=== PATIENT | female | born 1980 | race Caucasian/White ===

== ENCOUNTER → 2020-12-18 13:25 | Outpatient (BNVA) | payer MEDICAID, SELFPAY | PROVIDERS: Family Provider Family Medicine; PCP Family Medicine; Visit Provider Psychiatry & Neurology Psychiatry | DX: F43.12 Post-traumatic stress disorder, chronic (principal); F33.1 Major depressive disorder, recurrent, moderate; F41.1 Generalized anxiety disorder; F17.200 Nicotine dependence, unspecified, uncomplicated; F12.20 Cannabis dependence, uncomplicated; F15.20 Other stimulant dependence, uncomplicated | CPT/HCPCS: 99204 ==

== ENCOUNTER 2023-10-14 04:39 | Emergency (ER) | payer SELFPAY ==
[2023-10-14 04:41] VITALS: BP 149/96; PULSE 101; TEMP 36.6; O2SAT 100
--- NOTE | 2023-10-14 04:44 | W.ED.ALCOHOL ---
Documented by User: Saleem Madison DO 10/14/23 04:46 HPI - Alcohol General: Chief Complaint: Alcohol Stated Complaint: ETOH Time Seen by Provider: 10/14/23 04:44 History of Present Illness: EMS brought patient in he was found unresponsive after drinking alcohol. EMS was called by her significant other and her son who was also drinking with her. Patient is alert and talkative upon arrival. Patient says she drinks about 1/5 of tequila within 2 hours and passed out. Patient says she has no complaints at this time other than she wants to go home. Review of Systems General: Reports: 10 or more systems reviewed and unremarkable except in HPI and below PFSH ED PFSH: Medical History Psychiatric care Family History Denies family history of Colon cancer Ovarian cancer Diabetes Heart disease Hypercholesteremia Breast cancer Hypertension Uterine cancer Thyroid disease Stroke Physical Exam Const: COMMON NORMALS: no acute distress, average body habitus, no limitations, healthy appearing, alert and well nourished HENMT: COMMON NORMALS: normocephalic, atraumatic, hearing grossly normal bilaterally, external ears normal, Normal external nose present, moist oral mucous membranes and oropharynx normal HEAD & SCALP: normocephalic and atraumatic NOSE: Normal external nose present EXTERNAL EAR: Yes external ears normal Neck/C-Spine: COMMON NORMALS: no JVD Chest: COMMONS NORMALS: normal inspection of the chest and normal palpation of entire chest wall Resp: COMMON NORMALS: normal respiratory effort, No retractions, No use of accessory muscles and clear to auscultation bilaterally AUSCULTATION: clear to auscultation bilaterally Cardio: COMMON NORMALS: no JVD, regular rate, regular rhythm, S1 normal heart sound present, S2 normal heart sound present, No gallops present (Cardio), No clicks present (Cardio), No murmurs present (Cardio) and No rub (Cardio) RATE: regular rate RHYTHM: regular rhythm HEART SOUNDS: S1 normal heart sound present and S2 normal heart sound present GI: COMMON NORMALS: Normal to inspection, nondistended, normoactive bowel sounds present, Soft to palpation, non-tender, No hepatosplenomegaly present and no masses PALPATION: Yes Soft to palpation and Yes No hepatosplenomegaly present Neuro: SENSORIUM/ORIENTATION: Yes alert Course Vital Signs: Vital signs: Vital Signs Temperature 97.8 F 10/14/23 04:41 Pulse Rate 101 H 10/14/23 04:41 Respiratory Rate 16 10/14/23 05:56 Blood Pressure 149/96 10/14/23 04:41 Pulse Oximetry 97 10/14/23 05:56 Oxygen Delivery Me thod Room Air 10/14/23 05:56 MDM - Alcohol Differential Diagnosis Likely alcohol intoxication Medical Records I reviewed the patient's medical records. Lab Data I reviewed the patient's lab results. All radiology interpretation(s) finalized by discharge Discharge Plan Discharge Patient Disposition: Home Clinical Impression: Alcoholic intoxication Prescriptions: No Action azithromycin 250 mg tablet See Rx Instructions PO .COMPLEX Qty: 6 0RF Rx Instructions: take 500 mg today (day 1), then 250 mg for 4 days (days 2-5) PO Discharge Orders: Discharge ED (Routine); Ordered 10/14/23 Ordered By: Dmitry Gates Referrals: Ale Muhammad DO [Primary Care Provider] - Discharge Diet: Advance as tolerated Discharge Activity: Increase activity as tolerated Patient Instructions: Opioid Safety, Pain Management Activity Restrictions/Additional Instructions: Do not drink alcohol to excess. Continue to rehydrate yourself today with water and sports drinks. If it anytime you develop any new or worsening symptoms you are welcome to return to the emergency department at any time. Coding Level of Care Code ED Pharmacy Billing Adjudicator for Chg Fwd Documented by User: Dmitry Gates DO 10/14/23 08:57 HPI - Alcohol General: Chief Complaint: Alcohol Stated Complaint: ETOH Time Seen by Provider: 10/14/23 04:44 PFSH ED PFSH: Medical History Psychiatric care Family History Denies family history of Colon cancer Ovarian cancer Diabetes Heart disease Hypercholesteremia Breast cancer Hypertension Uterine cancer Thyroid disease Stroke Course Reevaluation(s): Reevaluation #1: I received signout from overnight emergency physician regarding this patient. The patient apparently had imbibed significant alcohol and had a syncopal episode and family called EMS. There was no history that suggested that she was suicidal homicidal etc. I interviewed the patient she responds readily to voice and states she wants to go home. She again denies to me that she has any thoughts of harming herself or others but admitted that she drank too much alcohol. She denies that she drinks alcohol every day. She lives with her 3 teenage children age 6 through 18 and has a nonlive-in boyfriend. She denies any complaints right now other than she still nauseated. She is aware of her circumstances, has intact decision making capacity which will reassess after antinausea medicine and allowing her to ambulate about the emergency department. If she has responsible family can provide reliable transportation to a safe environment we will evaluate for discharge. Time: 07:00 Reevaluation #2: The patient was reevaluated. She remains alert and answers questions appropriately and is aware of herself and surroundings.. No new or focal findings on clinical examination. She will be ambulated to ensure clinical stability but at this time she does not have any stigmata to suggest an ongoing emergency medical condition current plan given her current clinical picture will be to discharge with family. Time: 08:53 Vital Signs: Vital signs: Vital Signs Temperature 97.8 F 10/14/23 04:41 Pulse Rate 101 H 10/14/23 04:41 Respiratory Rate 16 10/14/23 05:56 Blood Pressure 149/96 10/14/23 04:41 Pulse Oximetry 97 10/14/23 05:56 Oxygen Delivery Me thod Room Air 10/14/23 05:56 MDM - Alcohol Medical Decision Making This patient was transported to the emergency department from her home after imbibing in a large amount of alcohol. This resulted in feeling weak and dizzy and she was transported to the emergency department at the behest of her family. He was evaluated by the overnight emergency physician and found to be clinically stable and she is expressing desires being discharged home. She was observed in the emergency department for a total of over 4 hours and remained alert, aware of surroundings and self and competent for decision-making. She did have mild nausea which was treated with antiemetics. The patient desires to be discharged to home to continue her recovery. At this point in time she has intact decision-making capacity has declined any additional intervention and is suitable to be discharged with return precautions. She is being discharged with family members. Discharge Plan Discharge Patient Disposition: Home Clinical Impression: Alcoholic intoxication Prescriptions: No Action azithromycin 250 mg tablet See Rx Instructions PO .COMPLEX Qty: 6 0RF Rx Instructions: take 500 mg today (day 1), then 250 mg for 4 days (days 2-5) PO Discharge Orders: Discharge ED (Routine); Ordered 10/14/23 Ordered By: Dmitry Gates Referrals: Ale Muhammad, [Primary Care Provider] - Discharge Diet: Advance as tolerated Discharge Activity: Increase activity as tolerated Patient Instructions: Opioid Safety, Pain Management Activity Restrictions/Additional Instructions: Do not drink alcohol to excess. Continue to rehydrate yourself today with water and sports drinks. If it anytime you develop any new or worsening symptoms you are welcome to return to the emergency department at any time. Coding Level of Care Code ED Pharmacy Billing Adjudicator for Miya Barreto
[2023-10-14 05:56] VITALS: RESP 16; O2SAT 97
[2023-10-14] MEDS: ondansetron 4 MG Tablet PO (07:50)
--- NOTE | 2023-10-14 08:15 | PC.NURSE ---
PATIENT DAUGHTER CALLED REQUESTING UPDATE. PATIENT DAUGHTER NOT IN THE CHART. VERBAL CONSENT FROM PATIENT TO GIVE DAUGHTER INFORMATION. DAUGHTER STATES IF PATIENT IS STILL HERE AT NOON, DAUGHTER WILL COME AND PICK PATIENT UP.
[2023-10-14] MEDS: acetaminophen 500 mg Tablet 1000 MG PO (08:54)
[2023-10-14 09:04] VITALS: BP 133/81; PULSE 83; O2SAT 96
== END 2023-10-14 09:05 | disposition home or self-care (01) ==
PROVIDERS: Emergency Provider Emergency Medicine; PCP Family Medicine
DX: F10.129 Alcohol abuse with intoxication, unspecified (principal)
CPT/HCPCS: 99283; Q0162

== ENCOUNTER 2024-02-22 05:41 | Emergency (ER) | payer MEDICAID, SELFPAY ==
[2024-02-22 05:45] VITALS: BP 142/94; PULSE 102; RESP 18; TEMP 36.1; O2SAT 99; BMI 27.4
--- NOTE | 2024-02-22 06:05 | XRR_ITS ---
PROCEDURE INFORMATION: Exam: XR Chest Exam date and time: 02/22/2024 6:21 AM Age: 43 years old Clinical indication: Dyspnea; Additional info: Dyspnea/cough TECHNIQUE: Imaging protocol: Radiologic exam of the chest. Views: 1 view. COMPARISON: No relevant prior studies available. FINDINGS: Lungs: Unremarkable. No consolidation. Pleural spaces: Unremarkable. No pleural effusion. No pneumothorax. Heart/Mediastinum: Unremarkable. No cardiomegaly. Bones/joints: Unremarkable. XR/XR chest 1V portable [id number] IMPRESSION: No acute findings.
--- NOTE | 2024-02-22 06:05 | W.ED.GENADLT ---
HPI - General Adult General: Chief complaint: General Medical Stated complaint: general sickness Time Seen by Provider: 02/22/24 05:43 Source: patient Mode of arrival: EMS History of Present Illness: 43-year-old female presents to the emergency room with multiple complaints. She complaining of a headache abdominal pain and difficulty emptying her bladder (she states this has been ongoing issue she is seen gynecology for it in the past). She complaining of low back pain she also complaining of some dysuria and headache. She said she has arthritis and previously tore a muscle in her quadriceps in her leg for which she takes diclofenac. She also related that she was having a flare of her lupus. When attempted to focus her chief complaint asked her specifically what was the thing bothering her the most that she called the ambulance she told me was she did not call the ambulance that her sons girlfriend called the ambulance because she had a headache and is having difficulty with her balance. She also related that she recently had an ultrasound because her bile duct is leaking into her stomach. Although review of her chart here there is no recent imaging done here. Onset (ago): day(s) Associated symptoms: Deny chest pain, dyspnea or rash Review of Systems Const: Denies: fever(s) or chills Card: Denies: chest pain Resp: Denies: dyspnea GI: Denies: abdominal pain : Denies: dysuria, urinary frequency or urinary urgency Musc: Denies: neck pain or back pain Skin/Breast: Denies: rash [facility] ED PFSH: Medical History (Updated 02/22/24 @ 08:31 by Lucho Hawthorne DO) Methamphetamine use disorder, moderate Cannabis use disorder, severe, dependence Major depressive disorder, recurrent, moderate Psychiatric care Family History Denies family history of Colon cancer Ovarian cancer Diabetes Heart disease Hypercholesteremia Breast cancer Hypertension Uterine cancer Thyroid disease Stroke Social History (Updated 02/22/24 @ 06:17 by Lucho Hawthorne DO) Substance/Drug Use: current Substance/Drug use type: Marijuana and Methamphetamine Physical Exam Const: GENERAL APPEARANCE: cooperative and comfortable ORIENTATION/CONSCIOUSNESS: Yes awake, Yes oriented to person, Yes oriented to place and Yes oriented to time HENMT: COMMON NORMALS: normocephalic, atraumatic and hearing grossly normal bilaterally HEAD & SCALP: normocephalic and atraumatic Resp: COMMON NORMALS: normal respiratory effort, No retractions, No use of accessory muscles and clear to auscultation bilaterally AUSCULTATION: clear to auscultation bilaterally Cardio: COMMON NORMALS: regular rate, regular rhythm and No murmurs present (Cardio) RATE: regular rate RHYTHM: regular rhythm GI: COMMON NORMALS: Soft to palpation and No hepatosplenomegaly present AUSCULTATION: Yes normoactive bowel sounds PALPATION: Yes Soft to palpation, No Tenderness to palpation present (GI), No Guarding due to palpation present (GI) and Yes No hepatosplenomegaly present Extremity: COMMON NORMALS: normal to inspection, capillary refill normal, no clubbing, cyanosis or edema, no calf tenderness and no pedal edema Neuro: SENSORIUM/ORIENTATION: Yes oriented to person, Yes oriented to place and Yes oriented to time Skin: COMMON NORMALS: no rashes or lesions noted GENERAL SKIN EXAM: no rashes or lesions noted Course Vital Signs: Vital signs: Vital Signs Temperature 97.0 F L 02/22/24 05:45 Pulse Rate 94 02/22/24 08:53 Respiratory Rate 16 02/22/24 06:37 Blood Pressure 129/89 02/22/24 08:53 Pulse Oximetry 98 02/22/24 08:53 Oxygen Delivery Me thod Room Air 02/22/24 05:45 [facility] - General Adult Medical Decision Making Multiple complaints. No significant findings no emergent condition at this time. Reviewed findings with the patient discharged home on diclofenac to use as needed follow-up with primary care. Medical Records I reviewed the patient's medical records. Lab Data I reviewed the patient's lab results. 02/22/24 06:09 02/22/24 06:09 Radiology Impressions Chest X-Ray 02/22/24 06:05 IMPRESSION: No acute findings. Head CT 02/22/24 06:12 IMPRESSION: No acute intracranial abnormality. Laboratory Results WBC 12.03 10^3/uL (3.29-11.43) H 02/22/24 06:09 RBC 4.40 10^6/uL (3.85-5.65) 02/22/24 06:09 Hgb 13.80 g/dL (11.27-16.99) 02/22/24 06:09 Hct 41.2 % (36-47) 02/22/24 06:09 MCV 93.6 fl (85-98) 02/22/24 06:09 MCH 31.4 pg (27-33) 02/22/24 06:09 MCHC 33.5 g/dL (30-55) 02/22/24 06:09 RDW 14.3 % (12.1-15.1) 02/22/24 06:09 Plt Count 244 10^3/cmm (157-399) 02/22/24 06:09 MPV 10.3 fL (7.4-10.4) 02/22/24 06:09 Neut % (Auto) 66.1 % 02/22/24 06:09 Lymph % (Auto) 25.5 % 02/22/24 06:09 [place] % (Auto) 7.6 % 02/22/24 06:09 Eos % (Auto) 0.1 % 02/22/24 06:09 Baso % (Auto) 0.5 % 02/22/24 06:09 Neut # (Auto) 7.94 10^3/uL (1.8-7.7) H 02/22/24 06:09 Lymph # (Auto) 3.1 10^3/uL (0.8-4.8) 02/22/24 06:09 [place] # (Auto) 0.9 10^3/uL (0.2-0.9) 02/22/24 06:09 Eos # (Auto) 0.0 10^3/uL (0.0-0.8) 02/22/24 06:09 Baso # (Auto) 0.1 10^3/uL (0.0-0.1) 02/22/24 06:09 Nucleated RBC % (auto) 0 % 02/22/24 06:09 Nucleated RBCs # 0.0 /100WBC 02/22/24 06:09 Sodium 141 mmol/L (136-145) 02/22/24 06:09 Potassium 4.0 mmol/L (3.5-5.1) 02/22/24 06:09 Chloride 105 mmol/L (98-107) 02/22/24 06:09 Carbon Dioxide 20 mmol/L (22-29) L 02/22/24 06:09 Anion Gap 20.0 (5-19) H 02/22/24 06:09 BUN 18 mg/dL (6-20) 02/22/24 06:09 Creatinine 0.9 mg/dL (0.5-0.9) 02/22/24 06:09 GFR Calculation 68.7 mL/min (90-130) L 02/22/24 06:09 Glucose 117 mg/dL (65-115) H 02/22/24 06:09 Calculated Osmolality 295 mOsm/kg (285-295) 02/22/24 06:09 Calcium 9.1 mg/dL (8.5-10.5) 02/22/24 06:09 Total Bilirubin 0.4 mg/dL (0.15-1.2) 02/22/24 06:09 AST 19 U/L (0-32) 02/22/24 06:09 ALT 21 U/L (0-33) 02/22/24 06:09 Alkaline Phosphatase 78 U/L (35-105) 02/22/24 06:09 Total Protein 7.2 g/dL (6.6-8.7) 02/22/24 06:09 Albumin 4.1 g/dL (3.5-5.2) 02/22/24 06:09 Globulin 3.1 g/dL (1.3-4.6) 02/22/24 06:09 Lipase 20 U/L (13-60) 02/22/24 06:09 Urine Color Yellow (Yellow) 02/22/24 06:53 Urine Appearance Slightly cloudy (CLEAR) 02/22/24 06:53 Urine pH 7 (5-7) 02/22/24 06:53 Ur Specific [place] 1.010 (1.005-1.030) 02/22/24 06:53 Urine Protein Trace (Negative) 02/22/24 06:53 Urine Glucose (UA) Norm (Normal) 02/22/24 06:53 Urine Ketones 1+ (Negative) H 02/22/24 06:53 Urine Blood Neg (Negative) 02/22/24 06:53 Urine Nitrate Negative (Negative) 02/22/24 06:53 Urine Bilirubin Neg (Negative) 02/22/24 06:53 Prot Sulfosalicylic Acd Cancelled 02/22/24 06:36 Urine Urobilinogen Norm mg/dL (Negative) 02/22/24 06:53 Ur Leukocyte Esterase Trace (Negative) H 02/22/24 06:53 Urine RBC None /hpf (0-2) 02/22/24 06:53 Urine WBC 0-4 /hpf (0-5) H 02/22/24 06:53 Ur Squamous Epith Cells 10-15 /hpf (0-5) H 02/22/24 06:53 Amorphous Sediment Not Reportable 02/22/24 06:53 Urine Bacteria 1+ /hpf (NONE) H 02/22/24 06:53 Urine Opiates Screen Negative ng/mL (Negative) 02/22/24 06:53 Ur Barbiturates Screen Positive ng/mL (Negative) H 02/22/24 06:53 Ur Phencyclidine Scrn Negative ng/mL (Negative) 02/22/24 06:53 Ur Amphetamines Screen Positive ng/mL (Negative) H 02/22/24 06:53 U Benzodiazepines Scrn Negative ng/mL (Negative) 02/22/24 06:53 Urine Cocaine Screen Negative ng/mL (Negative) 02/22/24 06:53 U Marijuana (THC) Screen Positive ng/mL (Negative) H 02/22/24 06:53 Ethyl Alcohol < 10 mg/dL (0-10) 02/22/24 06:09 All radiology interpretation(s) finalized by discharge Discharge Plan Discharge Patient Disposition: Home Clinical Impression: Myalgia, Methamphetamine use disorder, moderate Condition: Stable Prescriptions: New diclofenac sodium 75 mg tablet,delayed release (DR/EC) 75 mg PO Q12H PRN (Reason: pain) Qty: 20 0RF No Action azithromycin 250 mg tablet See Rx Instructions PO .COMPLEX Qty: 6 0RF Rx Instructions: take 500 mg today (day 1), then 250 mg for 4 days (days 2-5) PO Discharge Orders: Discharge ED (Routine); Ordered 02/22/24 Ordered By: Lucho Hawthorne Referrals: Ale Muhammad DO [Primary Care Provider] - Discharge Diet: Usual diet Discharge Activity: Increase activity as tolerated Patient Instructions: Opioid Safety, Pain Management Activity Restrictions/Additional Instructions: Thank you for choosing [facility] for your healthcare needs today. It is very important that you follow up as instructed or that you return to the Emergency Department should you have concerns or if your condition changes or worsens in any way. Coding Level of Care Code ED French Instructor for Miya Barreto
[2024-02-22] MEDS: ondansetron 2 mg/ML SDV 2 mL 4 MG IVP (06:08)
[2024-02-22] MEDS: sodium chloride 0.9% 1,000 ML 999 ML IV (06:08)
--- NOTE | 2024-02-22 06:12 | CTR_ITS ---
PROCEDURE INFORMATION: Exam: CT Head Without Contrast Exam date and time: 02/22/2024 6:25 AM Age: 43 years old Clinical indication: Pain; Headache; Additional info: Headache gait disturbance TECHNIQUE: Imaging protocol: Computed tomography of the head without contrast. Radiation optimization: All CT scans at this facility use at least one of these dose optimization techniques: automated exposure control; mA and/or kV adjustment per patient size (includes targeted exams where dose is matched to clinical indication); or iterative reconstruction. COMPARISON: No relevant prior studies available. RADIATION DOSE METRICS: Total DLP (mGy-cm): 1796 FINDINGS: Brain: Normal. No hemorrhage. Unremarkable white matter. No mass effect. Cerebral ventricles: No ventriculomegaly. Paranasal sinuses: Visualized sinuses are unremarkable. No fluid levels. Mastoid air cells: Visualized mastoid air cells are well aerated. Bones: Unremarkable. No acute fracture. Soft tissues: Unremarkable. CT/CT head wo con* [id number] IMPRESSION: No acute intracranial abnormality.
[2024-02-22 06:14] LABS: Basophils # 0.1 10^3/uL (0.0-0.1); Basophils % 0.5 %; Eosinophils % 0.1 %; Hematocrit 41.2 % (36-47); Lymphocytes # 3.1 10^3/uL (0.8-4.8); Lymphocytes % 25.5 %; Mean Corpuscular HGB Conc 33.5 g/dL (30-55); Mean Corpuscular Hemoglobin 31.4 pg (27-33); Mean Corpuscular Volume 93.6 fl (85-98); Mean Platelet Volume 10.3 fL (7.4-10.4); Monocytes # 0.9 10^3/uL (0.2-0.9); Monocytes % 7.6 %; Neutrophils # 7.94 10^3/uL (1.8-7.7); Neutrophils % 66.1 %; Nucleated Red Blood Cells % 0 %; Platelet Count 244 10^3/cmm (157-399); Red Cell Distribution Width 14.3 % (12.1-15.1); White Blood Count 12.03 10^3/uL (3.29-11.43)
[2024-02-22 06:28] LABS: Slide Review Slide Review Perform
[2024-02-22 06:33] LABS: Alanine Aminotransferase 21 U/L (0-33); Albumin Level 4.1 g/dL (3.5-5.2); Alkaline Phosphatase 78 U/L (35-105); Aspartate Amino Transferase 19 U/L (0-32); Blood Urea Nitrogen 18 mg/dL (6-20); Calcium 9.1 mg/dL (8.5-10.5); Carbon Dioxide 20 mmol/L (22-29); Chloride 105 mmol/L (98-107); Creatinine Clr Calc Pharmacy 79.5078; Globulin 3.1 g/dL (1.3-4.6); Glomerular Filtration Rate 68.7 mL/min (90-130); Glucose 117 mg/dL (65-115); Lipase 20 U/L (13-60); Osmolality Calculated 295 mOsm/kg (285-295); Sodium 141 mmol/L (136-145); Total Bilirubin 0.4 mg/dL (0.15-1.2); Total Protein 7.2 g/dL (6.6-8.7)
[2024-02-22 06:34] LABS: Alcohol Level < 10 mg/dL (0-10)
[2024-02-22 06:37] VITALS: BP 128/91; PULSE 91; RESP 16; O2SAT 100
[2024-02-22 07:36] LABS: Bilirubin Urine Neg (Negative); Blood Urine Neg (Negative); Glucose Urine UA Norm (Normal); Ketones Urine 1+ (Negative); Nitrate Urine Negative (Negative); Protein Urine Trace (Negative); Urine Appearance Slightly Cloudy (CLEAR); Urine Color Yellow (Yellow); Urobilinogen Urine Norm (Negative); pH Urine 7 (5-7)
[2024-02-22 07:37] LABS: Add Urine Microscopic? YES; Leukocyte Esterase Urine Trace (Negative)
[2024-02-22 07:41] LABS: Add Urine Culture? No; Bacteria Urine 1+ /hpf; WBC Urine 0-4 /hpf (0-5)
[2024-02-22 07:43] LABS: Amphetamines Screen Urine Positive (Negative); Barbiturates Screen Urine Positive (Negative); Benzodiazepines Screen Urine Negative (Negative); Cocaine Screen Urine Negative (Negative); Opiate Screen Urine Negative (Negative); PCP Screen Urine Negative (Negative); THC Screen Urine Positive (Negative)
[2024-02-22 07:51] VITALS: BP 135/80; PULSE 87; O2SAT 97
[2024-02-22 08:53] VITALS: BP 129/89; PULSE 94; O2SAT 98
== END 2024-02-22 08:54 | disposition home or self-care (01) ==
PROVIDERS: Emergency Provider Family Medicine; PCP Family Medicine
DX: R51.9 Headache, unspecified (principal); M32.9 Systemic lupus erythematosus, unspecified; M79.10 Myalgia, unspecified site; F15.14 Other stimulant abuse with stimulant-induced mood disorder
CPT/HCPCS: 70450; 71045; 80053; 80306; 80307; 81001; 83690; 85025; 96374; 99285; J2405; J7030

== ENCOUNTER → 2024-08-02 09:12 | Outpatient (BNVA) | payer MEDICAID, SELFPAY | PROVIDERS: PCP Family Medicine; Visit Provider Obstetrics & Gynecology | DX: R30.0 Dysuria (principal) | CPT/HCPCS: 81000 ==

== ENCOUNTER 2024-10-12 23:40 | Emergency (ER) | payer MEDICAID, SELFPAY ==
[2024-10-12 23:46] VITALS: BP 149/106; PULSE 111; RESP 18; TEMP 36.5; O2SAT 98; BMI 32.5
--- NOTE | 2024-10-12 23:56 | ECG_ITS ---
[facility]24[facility]12 Pat Name: Miya Wang Department: Room: Gender: Female Merchandising Consultant: : 1980 Requested By: Saleem Madison Order Number: [id number] Alessia MD: Giovany Stanley M.D. Measurements Intervals [place] Rate: 101 P: 59 ID: [id number] QRS: 32 QRSD: 94 T: 39 QT: 333 QTc: 432 Interpretive Statements SINUS TACHYCARDIA NONSPECIFIC T-WAVE ABNORMALITY No previous ECG available for comparison Electronically Signed On 10-13-2024 17:58:36 TRANSIT COACH OPERATOR by Giovany Stanley M.D. [email or web address]
[2024-10-13 00:40] LABS: Basophils % 0.1 %; Hematocrit 43.5 % (36-47); Lymphocytes # 2.4 10^3/uL (0.8-4.8); Lymphocytes % 17.8 %; Mean Corpuscular HGB Conc 33.8 g/dL (30-55); Mean Corpuscular Hemoglobin 30.8 pg (27-33); Mean Corpuscular Volume 91.2 fl (85-98); Mean Platelet Volume 9.9 fL (7.4-10.4); Monocytes # 0.6 10^3/uL (0.2-0.9); Monocytes % 4.1 %; Neutrophils # 10.52 10^3/uL (1.8-7.7); Neutrophils % 77.7 %; Nucleated Red Blood Cells % 0 %; Platelet Count 353 10^3/cmm (157-399); Red Blood Count 4.77 10^6/uL (3.85-5.65); Red Cell Distribution Width 13.6 % (12.1-15.1); White Blood Count 13.56 10^3/uL (3.29-11.43)
[2024-10-13 01:05] LABS: Troponin(5th) Baseline < 6 ng/L (0-10)
[2024-10-13 01:07] LABS: Anion Gap 17.1 (5-19); Blood Urea Nitrogen 14 mg/dL (6-20); Calcium 9.8 mg/dL (8.5-10.5); Carbon Dioxide 22 mmol/L (22-29); Chloride 98 mmol/L (98-107); Creatinine Clr Calc Pharmacy 97.3181; Glomerular Filtration Rate 78.7 mL/min (90-130); Glucose 138 mg/dL (65-115); Osmolality Calculated 279 mOsm/kg (285-295); Potassium 4.1 mmol/L (3.5-5.1); Sodium 133 mmol/L (136-145)
--- NOTE | 2024-10-13 02:05 | ECG_ITS ---
[facility] Test Date: 2024-10-13 Pat Name: Miya Wang Department: Room: Gender: Female Certified Medication Technician: : 1980 Requested By: Saleem Madison Order Number: [id number] Alessia MD: Giovany Stanley M.D. Measurements Intervals [place] Rate: 78 P: 28 MT: 157 QRS: 28 QRSD: 101 T: 19 QT: 351 QTc: 400 Interpretive Statements SINUS RHYTHM NONSPECIFIC T-WAVE ABNORMALITY Compared to ECG 10/12/2024 23:56:22 Sinus tachycardia no longer present T-wave abnormality still present Electronically Signed On 10-13-2024 19:27:16 RESEARCH ATTORNEY by Giovany Stanley M.D. [email or web address]
[2024-10-13 02:14] LABS: Troponin 5 2HR Delta 0.00001 ABS# (0-10)
[2024-10-13 02:43] VITALS: BP 141/92; PULSE 92; RESP 16; O2SAT 97
--- NOTE | 2024-10-13 02:47 | CTR_ITS ---
PROCEDURE INFORMATION: Exam: CT Head Without Contrast Exam date and time: 10/13/2024 2:58 AM Age: 43 years old Clinical indication: Pain; Headache; Left sided BERNARD with n/v. Hypertensive. ; Additional info: Sharp stabbing left-sided head pain, hypertension TECHNIQUE: Imaging protocol: Computed tomography of the head without contrast. Radiation optimization: All CT scans at this facility use at least one of these dose optimization techniques: automated exposure control; mA and/or kV adjustment per patient size (includes targeted exams where dose is matched to clinical indication); or iterative reconstruction. COMPARISON: CT head wo con* [id number] 02/22/2024 6:25 AM RADIATION DOSE METRICS: Total DLP (mGy-cm): 997.41 FINDINGS: Brain: Normal. No hemorrhage. Unremarkable white matter. No mass effect. Cerebral ventricles: No ventriculomegaly. Paranasal sinuses: Modest patchy ethmoid opacification. No fluid levels. Mastoid air cells: Visualized mastoid air cells are well aerated. Bones: Unremarkable. No acute fracture. Soft tissues: Unremarkable. CT/CT head wo con* [id number] IMPRESSION: No acute intracranial abnormality.
--- NOTE | 2024-10-13 02:50 | ED_ITS ---
HPI - General Adult 2 General: Chief complaint: General Medical Stated complaint: HBP dizzy shaking n/v Time Seen by Provider: 10/13/24 02:40 History of Present Illness: Patient presents to the ER with complaints of sharp shooting stabbing headache behind her left eye. And uncontrolled blood pressure. She says she just feels off and like she might pass out. Patient states about 9:00 she took her blood pressure medicine and her blood pressure and noticed it was about 170 then 5 minutes later she took it it was 180 then by 10 minutes later she took and it was over 200. Patient says normally runs about 160. She does have a history of migraines but this is different from her typical migraine. Related Data Home Medications ?Medication ?Instructions ?Recorded ?Confirmed chlorthalidone 25 mg tablet mg PO 08/02/24 08/02/24 losartan 50 mg tablet mg PO 08/02/24 08/02/24 Allergies Allergy/AdvReac Type Severity Reaction Status Date / Time Penicillins Allergy Severe hives Verified 10/12/24 23:52 Review of Systems 2 General: Reports: 10 or more systems reviewed and unremarkable except in HPI and below PFSH ED 2 PFSH: Medical History Methamphetamine use disorder, moderate Cannabis use disorder, severe, dependence Major depressive disorder, recurrent, moderate Psychiatric care Family History Grandmother Diabetes Hypertension Mother Hypertension Grandfather Hypertension Denies family history of Colon cancer Ovarian cancer Heart disease Hypercholesteremia Breast cancer Uterine cancer Thyroid disease Stroke Social History Smoking and tobacco/nicotine status: current every day tobacco/nicotine user Substance/Drug Use: current Physical Exam 2 Const: COMMON NORMALS: no acute distress, average body habitus, patient oriented x3, no limitations, healthy appearing, alert and well nourished HENMT: COMMON NORMALS: normocephalic, atraumatic, hearing grossly normal bilaterally, external ears normal, Normal external nose present, moist oral mucous membranes and oropharynx normal HEAD & SCALP: normocephalic and atraumatic NOSE: Normal external nose present EXTERNAL EAR: Yes external ears normal Eye: COMMON NORMALS: Equal, round and reactive pupils present, EOMs intact bilaterally, conjunctivae normal and no scleral icterus CONJUNCTIVA: Yes conjunctivae normal PUPIL: Yes Equal, round and reactive pupils present Neck/C-Spine: COMMON NORMALS: full ROM, no lymphadenopathy, supple, no meningeal signs, no JVD and Thyroid normal THYROID: Thyroid normal Chest: COMMONS NORMALS: normal inspection of the chest and normal palpation of entire chest wall Resp: COMMON NORMALS: normal respiratory effort, No retractions, No use of accessory muscles and clear to auscultation bilaterally AUSCULTATION: clear to auscultation bilaterally Cardio: COMMON NORMALS: no JVD, regular rate, regular rhythm, S1 normal heart sound present, S2 normal heart sound present, No gallops present (Cardio), No clicks present (Cardio), No murmurs present (Cardio) and No rub (Cardio) R ATE: regular rate RHYTHM: regular rhythm HEART SOUNDS: S1 normal heart sound present and S2 normal heart sound present GI: COMMON NORMALS: Normal to inspection, nondistended, normoactive bowel sounds present, Soft to palpation, non-tender, No hepatosplenomegaly present and no masses PALPATION: Yes Soft to palpation and Yes No hepatosplenomegaly present Neuro: COMMON NORMALS: patient oriented x3 SENSORIUM/ORIENTATION: Yes alert MENINGEAL SIGNS: Yes no meningeal signs Course 2 Vital Signs: Vital signs: Vital Signs Temperature 97.7 F 10/12/24 23:46 Pulse Rate 92 10/13/24 02:43 Respiratory Rate 16 10/13/24 02:43 Blood Pressure 141/92 10/13/24 02:43 Pulse Oximetry 97 10/13/24 02:43 Oxygen Delivery Me thod Room Air 10/13/24 02:43 [facility] - General Adult Medical Decision Making Lab work was obtained as well as head CT, all of which was essentially unremarkable. Patient's blood pressure did improve patient was given Toradol and Zofran. Patient's headache improved. Patient be discharged home and instructed to follow-up with her PCP. Medical Records I reviewed the patient's medical records. Lab Data I reviewed the patient's lab results. 10/13/24 00:23 10/13/24 00:[address] 10/13/24 02:47 IMPRESSION: No acute intracranial abnormality. Laboratory Results WBC 13.56 10^3/uL (3.29-11.43) H 10/13/24 00:23 RBC 4.77 10^6/uL (3.85-5.65) 10/13/24 00:23 Hgb 14.70 g/dL (11.27-16.99) 10/13/24 00:23 Hct 43.5 % (36-47) 10/13/24 00:23 MCV 91.2 fl (85-98) 10/13/24 00:23 MCH 30.8 pg (27-33) 10/13/24 00: MCHC 33.8 g/dL (30-55) 10/13/24 00:23 RDW 13.6 % (12.1-15.1) 10/13/24 00:23 Plt Count 353 10^3/cmm (157-399) 10/13/24 00:23 MPV 9.9 fL (7.4-10.4) 10/13/24 00:23 Neut % (Auto) 77.7 % 10/13/24 00:23 Lymph % (Auto) 17.8 % 10/13/24 00:23 Cottle % (Auto) 4.1 % 10/13/24 00:23 Eos % (Auto) 0.0 % 10/13/24 00:23 Baso % (Auto) 0.1 % 10/13/24 00:23 Neut # (Auto) 10.52 10^3/uL (1.8-7.7) H 10/13/24 00:23 Lymph # (Auto) 2.4 10^3/uL (0.8-4.8) 10/13/24 00:23 Cottle # (Auto) 0.6 10^3/uL (0.2-0.9) 10/13/24 00:23 Eos # (Auto) 0.0 10^3/uL (0.0-0.8) 10/13/24 00:23 Baso # (Auto) 0.0 10^3/uL (0.0-0.1) 10/13/24 00:23 Nucleated RBC % (auto) 0 % 10/13/24 00:23 Nucleated RBCs # 0.0 /100WBC 10/13/24 00:23 Sodium 133 mmol/L (136-145) L 10/13/24 00:23 Potassium 4.1 mmol/L (3.5-5.1) 10/13/24 00:23 Chloride 98 mmol/L (98-107) 10/13/24 00:23 Carbon Dioxide 22 mmol/L (22-29) 10/13/24 00:23 Anion Gap 17.1 (5-19) 10/13/24 00:23 BUN 14 mg/dL (6-20) 10/13/24 00:23 Creatinine 0.8 mg/dL (0.5-0.9) 10/13/24 00:23 GFR Calculation 78.7 mL/min (90-130) L 10/13/24 00:23 Glucose 138 mg/dL (65-115) H 10/13/24 00:23 Calculated Osmolality 279 mOsm/kg (285-295) L 10/13/24 00:23 Calcium 9.8 mg/dL (8.5-10.5) 10/13/24 00:23 Troponin T Baseline < 6 ng/L (0-10) 10/13/24 00:23 Troponin T 120 Minute 6.00 ng/L (0-10) 10/13/24 01:52 Delta Troponin T 0.54927 ABS# (0-10) 10/13/24 01:52 All radiology interpretation(s) finalized by discharge Discharge Plan Discharge Patient Disposition: Home Clinical Impression: Hypertension, Headache Condition: Stable Prescriptions: No Action chlorthalidone 25 mg tablet PO losartan 50 mg tablet PO Discharge Orders: Discharge ED (Routine); Ordered 10/13/24 Ordered By: Saleem Madison Referrals: Ale Muhammad DO [Primary Care Provider] - 1 week Patient Instructions: Headache, Hypertension Activity Restrictions/Additional Instructions: Thank you for choosing [facility] for your healthcare needs today. Please realize that you were seen in the emergency department and that we are providing you with an emergency medical screening exam and this may not be a complete and all exclusive of all testing and/or medical workup we may need to determine your element or severity of your illness. It is very important that you follow-up as instructed with your primary care provider or specialist for the additional evaluation and to discuss your medical treatment plan. You may return to the emergency department should you have concerns or if your condition changes or worsens in any way. Print Language: Icelandic Coding Level of Care Code ED Circulation Clerk for Miya Barreto
[2024-10-13] MEDS: ondansetron hcl ODT 4 mg Tab PO (03:27)
[2024-10-13] MEDS: ketorolac 60 mg/2 mL INJ IM (03:28)
[2024-10-13 03:30] VITALS: BP 136/77; PULSE 85; O2SAT 96
[2024-10-13 04:00] VITALS: BP 105/57; PULSE 87; O2SAT 97
== END 2024-10-13 04:36 | disposition home or self-care (01) ==
PROVIDERS: Emergency Provider Emergency Medicine; PCP Family Medicine
DX: R51.9 Headache, unspecified (principal); I10 Essential (primary) hypertension; Z72.0 Tobacco use
CPT/HCPCS: 36415; 70450; 80048; 84484; 85025; 93005; 96372; 99284; J1885; Q0162

== ENCOUNTER 2024-10-24 09:30 | Outpatient (CLI) | payer MEDICAID, SELFPAY ==
--- NOTE | 2024-10-24 09:37 | MM_ITS ---
WS: [id number] Bilateral diagnostic 3D tomosynthesis digital mammogram, 10/24/2024 Clinical Data: HX OF LUMP IN BREAST Comparison: None. Findings: The breasts show no spiculated masses nor clustered calcifications. The breast parenchymal pattern shows heterogeneous density. There are no secondary signs of carcinoma. MM/MM diag BI tomosynthesis [id number] Impression: 1. Negative bilateral mammograms with no prior exam for review. 2. Recommend annual screening mammograms. BIRADS: 1 - Negative FOLLOW UP: 1 Year Follow-up The CAD mechanical and auto body car checker was used
--- NOTE | 2024-10-24 10:14 | US_ITS ---
WS: [id number] Left breast ultrasound, 10/24/2024 Clinical Data: LEFT BREAST LUMP Comparison: Mammogram, 10/24/2024 Findings: There is a subcutaneous soft tissue density in the 9 o'clock position of the left breast. It measures 1.1 x 3.2 x 3.5 cm. It has a mixed echotexture with a smooth border. Most likely represents a benign density such as a lipoma. US/US breast LT limited* [id number] Impression: 1. Probable benign subcutaneous soft tissue density. 2. Recommend clinical follow-up. BIRADS: 2 - Benign. FOLLOW UP: 1 Year Follow-up
== END 2024-10-24 09:31 | disposition home or self-care (01) ==
PROVIDERS: PCP Family Medicine; Visit Provider Nurse Practitioner Family
DX: Z87.898 Personal history of other specified conditions (principal); R92.333 Mammographic heterogeneous density, bilateral breasts; M79.9 Soft tissue disorder, unspecified
CPT/HCPCS: 76642; 77062; G0279